=== PATIENT | male | born 1965 | race Caucasian/White ===

== ENCOUNTER 2019-04-27 12:23 | Emergency (ER) | payer OTHER, SELFPAY ==
[2019-04-27 13:28] VITALS: BP 137/83; PULSE 89; RESP 20; TEMP 37.2; O2SAT 99
--- NOTE | 2019-04-27 13:38 | ECG_ITS ---
Measurements Intervals [place] Rate: 81 P: 66 MO: 147 QRS: 78 QRSD: 88 T: 65 QT: 372 QTc: 433 Interpretive Statements SINUS RHYTHM NORMAL ECG Electronically Signed On 04-27-2019 16:36:47 MARKETING LIAISON by Alfonso Patton D.O.
--- NOTE | 2019-04-27 13:59 | ED_ITS ---
I attest that this documentation has been prepared under the direction and in the presence of Maurisio Champion MD. María Ross Scribe 04/27/19;14:02 HPI - URI/Sore Throat General Chief Complaint: Upper Respiratory Infection Stated Complaint: dizzy Related Data Home Medications Medication Instructions Recorded Confirmed albuterol sulfate 2 inh INHALATION DIRECTED 04/27/19 04/27/19 fluoxetine 20 mg PO DAILY 04/27/19 04/27/19 hydrocodone-acetaminophen 1 tablet PO DIRECTED 04/27/19 04/27/19 omeprazole 20 mg PO DAILY 04/27/19 04/27/19 Allergies Allergy/AdvReac Type Severity Reaction Status Date / Time No Known Allergies Allergy Unknown Unverified 02/19/18 09:55 Course Vital Signs Vital signs: Vital Signs Temperature 37.2 C 04/27/19 13:28 Pulse Rate 89 04/27/19 13:28 Respiratory Rate 20 04/27/19 13:28 Blood Pressure 137/83 04/27/19 13:28 Pulse Oximetry 99 04/27/19 13:28 Temperature 37.2 C 04/27/19 13:28 Pulse Rate 89 04/27/19 13:28 Respiratory Rate 20 04/27/19 13:28 Blood Pressure 137/83 04/27/19 13:28 Pulse Oximetry 99 04/27/19 13:28 MDM - URI/Sore Throat Lab Data Labs: Influenza A Screen Negative Reference Range: Negative Influenza B Screen Negative Reference Range: Negative ECG Data EKG #1: Attestation: I personally reviewed and interpreted this ECG as follows: ECG completion date: 04/27/19 ECG completion time: 13:49 Interpretation: WI interval 0.147. Normal EKG. EKG Interpretation: normal rate (81 BPM) and sinus rhythm Discharge Plan Discharge Prescriptions: No Action hydrocodone-acetaminophen 10-325 mg tablet 1 tablet PO DIRECTED RF: 0 omeprazole 20 mg capsule,delayed release(DR/EC) 20 mg PO DAILY RF: 0 albuterol sulfate 90 mcg/actuation HFA aerosol inhaler 2 inh INHALATION DIRECTED RF: 0 fluoxetine 20 mg capsule 20 mg PO DAILY RF: 0
--- NOTE | 2019-04-27 14:24 | ED.DIZZY ---
HPI - Dizziness General Chief Complaint: Upper Respiratory Infection Stated Complaint: dizzy Time Seen by Provider: 04/27/19 14:10 Source: patient Mode of arrival: ambulatory Limitations: no limitations History of Present Illness HPI Narrative: A 53 y/o male, who is a nonsmoker/nondrinker, presents to with c/o dizziness for 2 days. Pt states that he woke up on Sunday (2 days ago) and fell into the wall when he got out of bed. Pt describes the dizziness as the room is spinning. The dizziness is worse when standing and movement. Pt is currently experiencing the dizziness and feels like I'm drunk or wearing the wrong prescription of glasses. He denies an earache, a JANG, sore throat, a recent HI, tinnitus, hearing changes, weakness, speech changes, visual changes, having a stress test done, and a PMHx of DM. Pt also c/o intermittent midsternal CP that he describes as a pressure for 1 month. Pt states that the pain will last for a few seconds at a time and will alleviate on its own. Pt was not experiencing any CP during his episode of dizziness on Sunday (2 days ago). Pt is not currently experiencing CP. Pt states that he exercises and lifts weights regularly, and can do 20 min on treadmill. Pt is unsure if he has a FHx of these symptoms because he was adopted. Pt took ASA 81 mg yesterday. Pt notes that he used to be on medication for his high BP and hyperlipidemia but he has been off these for awhile. It is recommended to the pt to follow up with a blood test. Pt declining to go to the ED today AMA and will set up with an appointment with his PCP. Onset (ago): day(s) (2) Description: room spinning Exacerbating factors: standing and other (movement) Related Data Home Medications Medication Instructions Recorded Confirmed albuterol sulfate 2 inh INHALATION DIRECTED 04/27/19 04/27/19 fluoxetine 20 mg PO DAILY 04/27/19 04/27/19 hydrocodone-acetaminophen 1 tablet PO DIRECTED 04/27/19 04/27/19 omeprazole 20 mg PO DAILY 04/27/19 04/27/19 Allergies Allergy/AdvReac Type Severity Reaction Status Date / Time No Known Allergies Allergy Unknown Unverified 02/19/18 09:55 Review of Systems Review of Systems: Narrative: General/Constitutional: Denies: weight loss,fever Eyes: Denies: Redness,discharge, visual changes Ears/Nose/Throat: Denies: Epistaxis,ear discharge, earache, sore throat, tinnitus, hearing changes Respiratory: Denies: Hemoptysis Cardiovascular: Reports: intermittent midsternal CP Gastrointestinal: Denies: Vomiting, Bleeding-rectal Skin: Denies: Lumps, eruption Neurologic: Reports: dizziness; Denies: Focal Weakness,Sz, JANG, recent HI, weakness, speech changes Hematologic: Denies: Petechiae/Purpura Psychiatric: Denies: Suicidal ideation All systems reviewed & are unremarkable except as noted in HPI and below PMFSH Past Medical History Medical History (Updated 04/27/19 @ 15:30 by Maurisio Champion MD) Depression GERD (gastroesophageal reflux disease) HLD (hyperlipidemia) HTN (hypertension) Surgical History Surgical History Previous back surgery Social History Social History (Updated 04/27/19 @ 14:46 by María Ross) Smoking status: Never smoker Alcohol intake: never Comments PCP: Adilene Sellers NP At time of signature, agree with nursing past medical, surgical, social and family history. There is no relevant family history pertinent to the presenting complaint Exam Narrative: Exam Narrative: General Appearance: Well appearing, No distress EYE: PERRLA, Conjunctiva clear, EOMI, no nystagmus Neurological: A&O x3, CN II-X intact, normal [id number], HTS Ears: External ear normal Nose: Normal nose Mouth/Throat: Normal appearing, Normal lips Neck: Supple Respiratory: Airway patent, No respiratory distress Cardiovascular: RRR Abdomen: Soft, Non-tender, No massess, No organomegaly Musculoskeletal: Full ROM Skin: Warm, Dry
== END 2019-04-27 14:55 | disposition left against medical advice (07) ==
PROVIDERS: Emergency Provider Emergency Medicine; PCP Nurse Practitioner Adult Health
DX: H81.10 Benign paroxysmal vertigo, unspecified ear (principal); R07.89 Other chest pain; I10 Essential (primary) hypertension; E78.5 Hyperlipidemia, unspecified
CPT/HCPCS: 87804; 93005; 99213; G0463

== ENCOUNTER 2022-06-06 15:46 | Emergency (ER) | payer BC, SELFPAY ==
[2022-06-06 16:06] VITALS: BP 165/76; PULSE 79; RESP 16; TEMP 36.6; O2SAT 98
--- NOTE | 2022-06-06 16:31 | ED.URI ---
HPI - URI/Sore Throat General Chief Complaint: Upper Respiratory Infection Stated Complaint: congestion Time Seen by Provider: 06/06/22 16:31 Source: patient and RN notes reviewed Mode of arrival: ambulatory Limitations: no limitations History of Present Illness HPI Narrative: 56-year-old male presented for complaint of nasal congestion for over 1 week. He denies any associated symptoms. He has been taking Sudafed and Claritin without significant relief. He states he felt better briefly, this was in conjunction with taking some of his 's prednisone. Denies sick contacts. MD elicited complaint: cough Related Data Home Medications Medication Instructions Recorded Confirmed omeprazole 20 mg capsule,delayed 20 mg PO DAILY 04/27/19 06/06/22 release fluoxetine 40 mg capsule 40 mg PO DAILY 06/06/22 06/06/22 lisinopril 10 mg tablet 10 mg PO BID 06/06/22 06/06/22 Allergies Allergy/AdvReac Type Severity Reaction Status Date / Time No Known Allergies Allergy Unknown Verified 06/06/22 16:16 Review of Systems Review of Systems: CONSTITUTIONAL: Denies malaise, chills, sweats, fever EYES: Denies visual changes, redness, or discharge ENT: Reports rhinorrhea, congestion, denies sinus pain, otalgia, sore throat CARDIOVASCULAR: Denies chest pain, palpitations, edema RESPIRATORY: Denies dyspnea GASTROINTESTINAL: Denies abdominal pain, nausea, vomiting, diarrhea SKIN: Denies rash or itching MUSCULOSKELETAL: Denies myalgia NEUROLOGIC: Denies headache PMFSH Past Medical History Medical History Depression GERD (gastroesophageal reflux disease) HLD (hyperlipidemia) HTN (hypertension) Surgical History Surgical History Previous back surgery Social History Social History Smoking status: Never smoker Alcohol intake: never Exam Narrative: GENERAL: Mildly ill-appearing, nontoxic EYES: PERRLA, conjunctivae clear ENT: Mucous membranes moist. Severe nasal congestion. tMs pearly epstein with dull light reflex bilaterally; no tragal tenderness. Oropharynx erythematous without lesions or exudate NECK: Supple. No lymphadenopathy CHEST: Clear to auscultation, breath sounds equal. No wheezing, rhonchi, rales, or stridor. No respiratory distress, speaks in full sentences. HEART: Regular rate and rhythm. No murmur heard. SKIN: Warm, dry, no rash. NEURO: Alert and oriented x3. Course Course Emergency Course: Patient is aware of diagnosis, understands and agrees to treatment plan. Anticipatory guidance given. Patient agrees to follow-up as directed and is aware of reasons to seek care at the emergency department. Portions of this record may have been created with voice recognition software Level of Care: Express Care Visit Vital Signs Vital signs: Vital Signs Temperature 97.9 F 06/06/22 16:06 Pulse Rate 79 06/06/22 16:06 Respiratory Rate 16 06/06/22 16:06 Blood Pressure 165/76 H 06/06/22 16:06 Pulse Oximetry 98 06/06/22 16:06 Oxygen Delivery Room Air 06/06/22 16:06 Temperature 97.9 F 06/06/22 16:06 Pulse Rate 79 06/06/22 16:06 Respiratory Rate 16 06/06/22 16:06 Blood Pressure 165/76 H 06/06/22 16:06 Pulse Oximetry 98 06/06/22 16:06 Oxygen Delivery Room Air 06/06/22 16:06 reviewed MDM - URI/Sore Throat MDM Narrative Medical decision making narrative: Will send prescription for antibiotic. Discussed use of steroid nasal spray at length. Advised supportive measures and signs/symptoms to go to the ER. Pt is appropriate for outpt treatment and f/u with PCP. Differential Diagnosis Differential diagnosis: Likely upper respiratory infection, sinusitis and viral infection Discharge Plan Discharge Clinical Impression: Upper respiratory infection Qualifiers: URI type: unspecified URI Qualified Code(s
== END 2022-06-06 16:40 | disposition home or self-care (01) ==
PROVIDERS: Emergency Provider Nurse Practitioner Family; PCP Family Medicine
DX: J06.9 Acute upper respiratory infection, unspecified (principal); K21.9 Gastro-esophageal reflux disease without esophagitis; E78.5 Hyperlipidemia, unspecified; I10 Essential (primary) hypertension; F32.A Depression, unspecified
CPT/HCPCS: 99213; G0463

== ENCOUNTER 2023-11-20 11:29 | Outpatient (CLI) | payer BC, SELFPAY ==
--- NOTE | ~2023-11-20 | XR_ITS ---
[id number] 11/20/2023 12:09 Indication: Right knee pain Procedure: 2 views right knee Comparison: No prior studies for comparison. Findings: There is moderate tricompartment osteoarthritis. Small joint effusion. No fracture or traum atic malalignment. There is ossification medial to the distal femur, consistent with remote ligamento us injury. Impression: 1: Moderate tricompartment osteoarthritis of the right knee. Reviewed, dictated and finalized at location [facility]. Impression: 1: Moderate tricompartment osteoarthritis of the right knee.
--- NOTE | ~2023-11-20 | XR_ITS ---
Right Shoulder Technique: AP and axillary views were obtained. Clinical History: Pain Findings: No fracture or dislocation is seen. Osseous alignment is anatomic. The glenohumeral and acr omioclavicular joint spaces are preserved. Soft tissues are unremarkable. Impression: Unremarkable right shoulder radiographs. Reviewed, dictated and finalized at [facility]. Impression: Unremarkable right shoulder radiographs.
== END 2023-11-20 11:30 | disposition home or self-care (01) ==
PROVIDERS: PCP Family Medicine; Visit Provider Nurse Practitioner Family
DX: M17.11 Unilateral primary osteoarthritis, right knee (principal); M25.511 Pain in right shoulder
CPT/HCPCS: 73030; 73560

== ENCOUNTER 2025-02-02 09:17 | Outpatient (CLI) | payer BC, SELFPAY ==
--- NOTE | ~2025-02-02 | MR_ITS ---
EXAM/PROCEDURE: MR shoulder RT wo con HISTORY: M25.511 - Pain in right shoulder COMPARISON: None available. TECHNIQUE: Noncontrast right shoulder MRI performed. FINDINGS: No fracture subluxation or dislocation. No acute or aggressive bony lesions. Moderate osteoarthritic appearing degenerative changes at the glenohumeral joint with moderately severe diffuse cartilaginous thinning. There is also moderate to severe arthrosis at the AC joint with prominent spur formation both superiorly and inferiorly. Globular hyperintense signal change in the superior labrum on the coronal images is suggestive of a SLAP tear or possibly degenerative labral tear. No other definite labral tear seen. Visualized ligaments appear intact. Moderate amount of longitudinal oriented fluid signal in the supraspinatus tendon can be seen on images 14 through 16 of series 4, and on sagittal image 12 and 13 series 10. Additionally, there may be a tiny full-thickness tear distally image 15 series 5. No retracted tear is present. The infraspinatus tendon appears thickened and a small tear distally is not excluded. The subscapularis and teres minor appear The subscapularis tendon is also slightly thickened but appears otherwise intact. The teres minor appears normal. The long head of the biceps tendon is intact within the bicipital groove. Trace amount of fluid is present in the long head tendon sheath. Superior labral attachment is partially seen and appears intact. Spinoglenoid recess and suprascapular notch regions appear normal. IMPRESSION: 1. Extensive arthrosis at the AC joint, along with advanced tendinosis and probable longitudinal tear in the supraspinatus tendon; a tiny non retracted full-thickness tear may also be present in this tendon approaching the insertion. A small tear involving the infraspinatus tendon may also be present. 2. Probable superior labral tear as discussed above. Moderate degenerative changes at the glenohumeral joint. Reviewed, dictated and finalized at location A. REBUILDER IMPRESSION: 1. Extensive arthrosis at the AC joint, along with advanced tendinosis and prob able longitudinal tear in the supraspinatus tendon; a tiny non retracted full-t hickness tear may also be present in this tendon approaching the insertion. A s mall tear involving the infraspinatus tendon may also be present. 2. Probable superior labral tear as discussed above. Moderate degenerative bhandari ges at the glenohumeral joint.
== END 2025-02-02 09:18 | disposition home or self-care (01) ==
PROVIDERS: PCP Family Medicine; Visit Provider Orthopaedic Surgery
DX: M19.011 Primary osteoarthritis, right shoulder (principal)
CPT/HCPCS: 73221